=== PATIENT | female | born 1965 | race African-American/Black ===

== ENCOUNTER 2020-03-04 09:25 | Outpatient (CLI) | payer OTHER, SELFPAY | END 2020-03-04 23:59 | disposition home or self-care (01) | LOC: MLB 09:25 → EDSTATUS 03-11 07:30 | PROVIDERS: ATTEND Internal Medicine Gastroenterology | DX: Z01.818 Encounter for other preprocedural examination (principal); Z11.59 Encounter for screening for other viral diseases; K63.5 Polyp of colon | CPT/HCPCS: C9803; U0003; 36415 ==

== ENCOUNTER 2020-10-20 21:49 | Emergency (ER) | payer OTHER, SELFPAY ==
[~2020-10-20] VITALS: Ht 162.6 cm; Wt 113.4 kg
[2020-10-20 22:27] VITALS: BP 160/68
--- NOTE | 2020-10-20 22:30 | NUR ---
TO LOBBY A/W BED AMBULATORY
--- NOTE | 2020-10-20 23:40 | NUR ---
SEEN AND EXAMINED BY KRISTIAN
[2020-10-21 02:28] VITALS: BP 160/68
--- NOTE | 2020-10-21 02:28 | NUR ---
Patient discharged with v/s stable. Written and verbal after care instructions given and explained. Patient verbalized understanding. Ambulatory with steady gait. All questions addressed prior to discharge. Advised to follow up with PMD.
== END 2020-10-21 02:26 | disposition home or self-care (01) ==
LOC: MED 21:49
DX: H33.22 Serous retinal detachment, left eye (principal); Z88.6 Allergy status to analgesic agent
CPT/HCPCS: 76881; 99284